=== PATIENT | male | born 1985 | race Caucasian/White ===

== ENCOUNTER 2016-07-11 01:49 | Emergency (ER) | payer OTHER ==
[~2016-07-11] VITALS: Ht 182.9 cm; Wt 113.5 kg
[2016-07-11 01:52] VITALS: BP 163/99; PULSE 79; RESP 18; TEMP 99; O2SAT 99
[2016-07-11] MEDS ORDERED: BACL10TA PO (01:58)
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
[2016-07-11] MEDS ORDERED: CYCLOBENZAPRINE HCL 10 MG TAB PO ONE (02:15)
[2016-07-11] MEDS ORDERED: SODIUM CHLORIDE 0.9% FLUSH 5 ML FLUSH IVF PRN (02:15)
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
[2016-07-11] MEDS ORDERED: CYCL1TAB29 PO (03:05)
[2016-07-11] MEDS ORDERED: MOTR200T4 PO (03:05)
== END 2016-07-11 03:40 | disposition home or self-care (01) ==
LOC: NEPC 01:49
DX: S29.012A Strain of muscle and tendon of back wall of thorax, initial encounter (principal); Z72.0 Tobacco use; V49.9XXA Car occupant (driver) (passenger) injured in unspecified traffic accident, initial encounter; Y99.9 Unspecified external cause status
CPT/HCPCS: 70450; 71010; 72100; 72125